=== PATIENT | female | born 1965 | race African-American/Black ===

== ENCOUNTER 2025-06-11 11:49 | Emergency (ER) | payer SELFPAY ==
[~2025-06-11] VITALS: Ht 162.6 cm; Wt 56.0 kg
[2025-06-11 12:09] VITALS: O2SAT 99
[2025-06-11 12:42] LABS: CLARITY URINE TURBID (CLEAR); COLOR URINE DARK YELLOW (YELLOW); GLUCOSE URINE NEGATIVE (NEGATIVE); KETONES URINE 1+ (NEGATIVE); LEUKOCYTE ESTERASE URINE 1+ (NEGATIVE); NITRITE URINE NEGATIVE (NEGATIVE); OCCULT BLOOD URINE NEGATIVE (NEGATIVE); PH URINE 5.5 (4.5-8.0); PROTEIN URINE 2+ (NEGATIVE); SPECIFIC GRAVITY URINE 1.023 (1.005-1.030); UROBILINOGEN URINE 1.0 E.U./dL (0.2-1.0)
[2025-06-11 12:45] LABS: BASOPHILS % 1.5 % (0.0-2.0); EOSINOPHILS % 3.2 % (0.0-5.0); HEMATOCRIT. 41.7 % (36.0-48.0); HEMOGLOBIN. 14.4 g/dL (12.0-16.0); LYMPHOCYTES % 45.4 % (20.0-50.0); MEAN PLATELET VOLUME 9.0 fl (7.4-10.4); MONOCYTES % 7.7 % (2.0-8.0); NEUTROPHILS % 42.2 % (40.0-76.0); PLATELET 305 x1000/uL (130-400); RED BLOOD CELL COUNT 4.39 mill/uL (4.2-5.4); RED CELL DISTRIBUTION WIDTH 14.0 % (11.6-14.6)
[2025-06-11 13:02] LABS: CREATININE 1.1 mg/dL (0.6-1.0)
[2025-06-11 13:03] LABS: UREA NITROGEN BLOOD 13 mg/dL (9-23)
[2025-06-11 13:04] LABS: ASPARTATE AMINOTRANSFERASE 27 IU/L (<34)
[2025-06-11 13:05] LABS: SQUAMOUS EPITHELIAL CELL URINE 3+ /lpf (RARE/1+)
[2025-06-11 13:05] LABS: BILIRUBIN DIRECT 0.1 mg/dL (<=3.0); BILIRUBIN TOTAL 0.6 mg/dL (0.1-1.0); PHOSPHORUS 3.1 mg/dL (2.5-4.9); PROTEIN TOTAL 7.8 g/dL (6.0-8.3)
[2025-06-11 13:15] LABS: BACTERIA URINE 2+; MUCUS URINE 1+ /lpf (< = 2+)
[2025-06-11 13:17] LABS: RBC URINE 0-2 /hpf (0-2)
[2025-06-11] MEDS: ACETAMINOPHEN 325MG TABLET PO ONE (14:33)
[2025-06-11] MEDS: FAMOTIDINE 20MG TABLET PO ONE (14:33)
[2025-06-11] MEDS: ONDANSETRON 4MG ODT PO ONE (14:33)
[2025-06-11] MEDS: POTASSIUM CHLORIDE 20MEQ TABLET SR PO STA (14:54)
[2025-06-11] MEDS: SODIUM CHLORIDE 0.9% 1,000 ML IV ONE (14:55)
[2025-06-11 15:45] LABS: INFLUENZA TYPE A Presumptive Negative (Pres. Neg.); INFLUENZA TYPE B Presumptive Negative (Pres. Neg.)
[2025-06-11 15:46] LABS: RESPIRATORY SYNCYTIAL VIRUS Not Detected (Not Detectd)
[2025-06-11] MEDS: POTASSIUM CHLORIDE 20MEQ TABLET SR PO ONE (16:12)
[2025-06-11 16:22] VITALS: BP 154/63; PULSE 62; RESP 18; TEMP 36.8; O2SAT 100
== END 2025-06-11 16:26 | disposition home or self-care (01) ==
LOC: ER 11:49
DX: K52.9 Noninfective gastroenteritis and colitis, unspecified (principal); E87.6 Hypokalemia; I10 Essential (primary) hypertension; Z20.822 Contact with and (suspected) exposure to COVID-19
CPT/HCPCS: 80076; 80048; 81003; 83690; 83735; 84100; 85025; 87420; 87804 ×2; 36415; 74176; 96360; 99284; 87426; Q0162; J7030; Z7610 ×2